=== PATIENT | male | born 1945 | race Caucasian/White ===

== ENCOUNTER 2016-11-15 09:08 | Day surgery (SDC) | payer MEDICARE, BC ==
--- NOTE | ~2016-11-15 | OP ---
Record Of Operation [facility] [address] [place]. [address] NAME: SENA LEE : 41 STATUS : REG [facility]#: [id number] AGE: 71 ADM/REG DATE : 11/15/16 MR#: [id number] REPORT SERV DATE: 11/15/16 DICTATED BY: CARLOS SHABAZZ DATE: 11/15/16 REPORT STATUS : Draft TRANSCRIBED BY: KAYCEE DATE: 11/15/16 DATE OF PROCEDURE: 11/15/2016 PREPROCEDURE DIAGNOSIS: Thickening of sigmoid colon on CT. POSTPROCEDURE DIAGNOSIS: Rectal cancer. HISTORY OF PRESENT ILLNESS: Mr. Lee is a 71-year-old gentleman who has never had a colonoscopy. He was being evaluated for fecal incontinence and issues with urination. He did have some bright red blood on the toilet paper. He underwent a CT scan of the pelvis without contrast which showed some thickening of the sigmoid colon. PROCEDURE: Colonoscopy, hot biopsy, polypectomy. DESCRIPTION OF PROCEDURE: The patient was taken to the endoscopy suite, positioned in the left lateral decubitus position. Informed consent was obtained followed by IV sedation, delivered by SOCKET PULLER. Digital rectal exam, decreased sphincter tone, no masses. The scope was navigated to simply 5 cm when a large almost completely circumferential mass was noted from [address] to 15 cm. It was friable. Multiple hot biopsies were taken. This was indeed a mass or tumor. The scope was navigated past it all the way to the ileocecal valve where the appendiceal orifice. Cecal straps were noted and prep was moderately adequate. The scope was withdrawn over a 12-minute period of time. He did have significant diverticular disease proximal to the lesion but again the lesion measured between 15 cm and 5 cm. There was adequate margin between the distal aspect of the tumor and the anorectal verge based on digital rectal exam where the tumor is barely palpable at the tip of the finger. The scope was withdrawn. He tolerated the procedure well. SAGAR/KAYCEE Carlos Shabazz M.D. / [id number] CC: Matty Dee M.D. J. Patrick Dilworth, M.D.
[~2016-11-15 09:08] MED LIST: ASAB PO; BEN25 PO; CENTRUM TAB1 TAB PO; CIP5 PO; FLOMAX4 PO; HYZAAR1 TAB PO; LOFIBRA160 MG PO; PCET PO; PYR200 PO; TRADJENTA5 MG PO; TRAZ50 PO; Z300 PO; ZOCOR40 PO
[2016-11-30] MEDS ORDERED: JANUVIA25 MG PO (13:18)
[2016-11-30] MEDS ORDERED: COMP10B PO (13:18)
[2016-11-30] MEDS ORDERED: ZOFRAN8 PO (13:18)
[2017-03-07] MEDS ORDERED: JANUVIA50 PO (10:30)
[2017-05-23] MEDS ORDERED: TYLENOL PM PO (20:55)
[2017-05-23] MEDS ORDERED: PRILO PO (20:57)
[2017-05-23] MEDS ORDERED: IMOD PO (20:57)
[2017-05-23] MEDS ORDERED: MEGACEUDL PO (20:57)
[2017-05-23] MEDS ORDERED: FLOMAX4 PO (20:58)
[2017-05-23] MEDS ORDERED: JANUVIA50 PO (20:58)
[2017-05-23] MEDS ORDERED: SB325 PO (20:58)
[2017-05-23] MEDS ORDERED: ZOL50 PO (21:03)
[2017-05-23] MEDS ORDERED: PROAIR HFA INH (21:03)
[2017-05-23] MEDS ORDERED: LOFIB160 PO (21:03)
[2017-05-23] MEDS ORDERED: CHEMOTHERAPY (21:05)
[2017-05-25] MEDS ORDERED: ELIQUIS 5 MG TAB5 MG PO (10:38)
[2017-05-25] MEDS ORDERED: REM15 PO (10:42)
== END 2016-11-15 23:59 | disposition home or self-care (01) ==
LOC: DMU 09:08
PROVIDERS: Surgery
PROC: 0DBP8ZX Excision of Rectum, Via Natural or Artificial Opening Endoscopic, Diagnostic (ICD-10-PCS; principal; 2016-11-15 11:00)
DX: C20 Malignant neoplasm of rectum (principal); I10 Essential (primary) hypertension; E78.00 Pure hypercholesterolemia, unspecified; E07.89 Other specified disorders of thyroid; E11.9 Type 2 diabetes mellitus without complications; N28.9 Disorder of kidney and ureter, unspecified; G47.33 Obstructive sleep apnea (adult) (pediatric); Z79.82 Long term (current) use of aspirin; Z79.899 Other long term (current) drug therapy; Z79.891 Long term (current) use of opiate analgesic
CPT/HCPCS: 82962; 88305

== ENCOUNTER 2016-12-06 11:38 | Day surgery (SDC) | payer MEDICARE, BC ==
[2016-12-04 12:39] LABS: HEMATOCRIT 38.5 % (40.0-51.0); HEMOGLOBIN 11.9 g/dL (13.6-17.8)
[2016-12-04 13:14] LABS: BUN (BLOOD UREA NITROGEN) 18 MG/DL (6-23); CALCIUM, SERUM 9.9 MG/DL (8.5-10.4); CHLORIDE, SERUM 105 MMOL/L (96-112); CO2 (CARBON DIOXIDE) 29 MMOL/L (24-34); CREATININE 1.82 MG/DL (0.70-1.30); GFR AFRICAN AMERICAN 42 ML/MIN (>=60); GFR NON AFRICAN AMERICAN 36 ML/MIN (>=60); GLUCOSE, SERUM 146 MG/DL (60-99); POTASSIUM, SERUM 4.4 MMOL/L (3.5-5.3); SODIUM, SERUM 141 MMOL/L (135-148)
--- NOTE | ~2016-12-06 | OP ---
Record Of Operation [facility] [address] [place]. 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 PROCEDURE: Port placement of the right internal jugular vein with fluoroscopic and ultrasound guidance. ASSOCIATE SOFTWARE DEVELOPER: Mariana. DESCRIPTION OF PROCEDURE: The patient was taken to the operating room, induced under MAC anesthetic, prepped and draped in the usual sterile fashion. Local anesthetic was injected just above the clavicle just to the right of the sternal notch. Then ultrasound was used to identify the right internal jugular vein which was anterior, lateral, larger, and compressible to the pulsatile carotid. A picture was taken with the ultrasound placed on the chart for confirmation. Using ultrasound guidance, a finer needle was used to access the internal jugular vein and then via Seldinger technique, a wire was placed through the vein and confirmed in the SVC using fluoro. The needle was removed and the wire pinned to the drapes using a rubber shod. Local anesthetic was used two finger breaths below the clavicle injecting subcu in the skin and adipose tissue. A 2 cm incision was made with a scalpel blade. This was carried down to the level of fascia using cautery. A 2 x 2 cm pocket was created using cautery and two stay sutures of 2-0 Prolene were placed on the pectoralis fascia through the port and tagged holding it into place. Then local anesthetic was placed in the subcu tissue from the port pocket site to the neck incision. A stab incision was made with the scalpel overlying the wire and then the tunneler attached to tubing was brought from the port pocket site out laterally the neck incision. Here, the tunneler was cut from the tubing on a diagonal and the obturator plus sheath was placed over the wire without any resistance. Fluoro confirmed its presence in the SVC. The wire and obturator were removed. The tubing placed down the sheath to 20 cm, it aspirated and flushed easily. The sheath was cracked and removed holding the tubing in place. Fluoro confirmed the tip in the SVC at the level of the right atrium. The tubing was clamped with a rubber shod, cut to size and dilated, attached to the port, and locked into place. The port was aspirated and flushed easily and then it was placed into the port pocket. The two stay sutures were tied, cut. The two incisions were closed with 3-0 Vicryl suture and a 4-0 Monocryl for the skin. He was cleaned and dried followed by benzoin, Steri-Strips, Telfa, and Tegaderm, tolerated the procedure well and chest x-ray confirmed placement with absence of pneumothorax in the PACU. It is my pleasure participating in the care of your patient. SAGAR/KAYCEE Carlos Shabazz M.D. Record Of Operation [address] [address] NAME: SENA LEE : 41 STATUS : [facility] PAT#: [id number] AGE: 71 ADM/REG DATE : 12/06/16 MR#: [id number] REPORT SERV DATE: 12/06/16 DICTATED BY: CARLOS SHABAZZ DATE: 12/06/16 REPORT STATUS : Draft TRANSCRIBED BY: KAYCEE DATE: 12/06/16 / [id number] CC: Matty Dee M.D. Derek W Holland, M.D.
[~2016-12-06 11:38] MED LIST changes: +COMP10B PO; +JANUVIA25 MG PO; +ZOFRAN8 PO
[2017-03-07] MEDS ORDERED: JANUVIA50 PO (10:30)
[2017-05-23] MEDS ORDERED: TYLENOL PM PO (20:55)
[2017-05-23] MEDS ORDERED: PRILO PO (20:57)
[2017-05-23] MEDS ORDERED: MEGACEUDL PO (20:57)
[2017-05-23] MEDS ORDERED: IMOD PO (20:57)
[2017-05-23] MEDS ORDERED: JANUVIA50 PO (20:58)
[2017-05-23] MEDS ORDERED: SB325 PO (20:58)
[2017-05-23] MEDS ORDERED: FLOMAX4 PO (20:58)
[2017-05-23] MEDS ORDERED: PROAIR HFA INH (21:03)
[2017-05-23] MEDS ORDERED: ZOL50 PO (21:03)
[2017-05-23] MEDS ORDERED: LOFIB160 PO (21:03)
[2017-05-23] MEDS ORDERED: CHEMOTHERAPY (21:05)
[2017-05-25] MEDS ORDERED: ELIQUIS 5 MG TAB5 MG PO (10:38)
[2017-05-25] MEDS ORDERED: REM15 PO (10:42)
== END 2016-12-06 15:19 | disposition home or self-care (01) ==
LOC: SDC 11:38
PROVIDERS: Surgery
PROC: 05HM33Z Insertion of Infusion Device into Right Internal Jugular Vein, Percutaneous Approach (ICD-10-PCS; principal; 2016-12-06 13:30)
DX: C20 Malignant neoplasm of rectum (principal); I10 Essential (primary) hypertension; E78.00 Pure hypercholesterolemia, unspecified; E11.9 Type 2 diabetes mellitus without complications; N18.9 Chronic kidney disease, unspecified
CPT/HCPCS: 71010; 77001; 80048; 82962; 85014; 85018; 93005; C1788; J0690; J2250; J2405; J2710; J3010

== ENCOUNTER 2017-03-12 11:05 | Inpatient (IN) | payer MEDICARE, BC ==
[2017-03-06 15:48] LABS: HEMATOCRIT 37.9 % (40.0-51.0); HEMOGLOBIN 12.3 g/dL (13.6-17.8)
[2017-03-06 16:04] LABS: BUN (BLOOD UREA NITROGEN) 15 MG/DL (6-23); CALCIUM, SERUM 9.7 MG/DL (8.5-10.4); CHLORIDE, SERUM 106 MMOL/L (96-112); CO2 (CARBON DIOXIDE) 27 MMOL/L (24-34); CREATININE 1.64 MG/DL (0.70-1.30); GFR AFRICAN AMERICAN 47 ML/MIN (>=60); GFR NON AFRICAN AMERICAN 41 ML/MIN (>=60); GLUCOSE, SERUM 94 MG/DL (60-99); POTASSIUM, SERUM 4.6 MMOL/L (3.5-5.3); SODIUM, SERUM 140 MMOL/L (135-148)
--- NOTE | ~2017-03-12 | DS ---
Discharge Summary [facility] [address] [place]. [address] NAME: SENA LEE : 41 STATUS : DIS IN PAT#: [id number] AGE: 71 ADM/REG DATE : 03/12/17 MR#: [id number] REPORT SERV DATE: 03/27/17 DICTATED BY: CARLOS SHABAZZ DATE: 03/26/17 REPORT STATUS : Draft TRANSCRIBED BY: MODChandra DATE: 03/26/17 Data Collection from hospitalization DISCHARGE DIAGNOSES: 1. Rectal cancer. 2. Hypertension. 3. Diabetes. 4. Fecal incontinence. 5. Insomnia. 6. Urinary retention. 7. Urinary incontinence. 8. Kidney stones. CONSULTATIONS: None. PROCEDURES PERFORMED: Robotic converted to laparoscopic converted to open low anterior resection with ileostomy, applying a modifier 22 due to the degree of difficulty and the need to convert from robotic to open procedure due to the need for deep pelvic instruments, 03/12/2017. PATHOLOGY: Rectosigmoid colon, low anterior resection-invasive mucinous adenocarcinoma, colon "donut" reanastomosis-diverticulosis. No tumor seen. MEDICATIONS: Lofibra 160 mg at bedtime, [place] 7.5/325 one to two tablets every four to six hours as needed, Zocor 40 mg at bedtime, Januvia 50 mg every day at bedtime, Flomax 0.4 mg at bedtime, Desyrel 50 mg at bedtime as needed. CONDITION AT DISCHARGE: Stable. DISPOSITION: The patient was discharged home to be followed by home health care on a 2000- calorie diabetic diet with activities as instructed. He would follow up with me as instructed. HOSPITAL COURSE: This is a 71-year-old man, who has T3 N0 M0 adenocarcinoma of the rectum. He is status post neoadjuvant therapy. Treatment options were discussed and it was elected to proceed with surgical intervention. He was admitted to the hospital at this time for further evaluation and treatment. Upon admission, he was taken to the operating room, where he underwent the above-mentioned procedure. He tolerated this well and there were no complications. On postop day one, he complained of pain. He was using the DETECTIVE CAPTAIN. He would need assistance for ambulation. The Gee catheter remained in place. He was evaluated by Physical Therapy. On postop day two, he was tolerating a regular diet. His incisions looked okay. Creatinine level was 1.7. Discharge planning was performed. On 03/15/2017, he did have some urinary retention when the Gee catheter was removed. Creatinine level was now 1.36. He had had a fever of 101.1 during the night. Chest x-ray and urinalysis were going to be checked. Blood culture was going to be performed. Discharge instructions were given. Due to his improved and stable condition, he was discharged home with the above-stated instructions. Discharge Summary [address] [place]. [address] NAME: SENA LEE : 41 STATUS : DIS IN PAT#: [id number] AGE: 71 ADM/REG DATE : 03/12/17 MR#: [id number] REPORT SERV DATE: 03/27/17 DICTATED BY: CARLOS SHABAZZ DATE: 03/26/17 REPORT STATUS : Draft TRANSCRIBED BY: KAYCEE DATE: 03/26/17 Information collected by: Madison Mejia I submit the above information as my discharge summary. CHRIS/KAYCEE Carlos Shabazz M.D. / [id number] CC: Matty Dee M.D.
--- NOTE | ~2017-03-12 | HP ---
History And Physical [address] [address] NAME: SENA LEE : 41 STATUS : ADM IN [facility]#: [id number] AGE: 71 ADM/REG DATE : 03/12/17 MR#: [id number] REPORT SERV DATE: 03/13/17 DICTATED BY: CARLOS SHABAZZ DATE: 03/12/17 REPORT STATUS : Draft TRANSCRIBED BY: KAYCEE DATE: 03/12/17 DATE OF ADMISSION: 03/12/2017 REASON FOR ADMISSION: Robotic converted to open low anterior resection for T3, N0, M0 adenocarcinoma of the rectum status post neoadjuvant therapy. PAST MEDICAL HISTORY: Fecal incontinence, rectal cancer, insomnia, urinary retention, urinary incontinence, kidney stones, diabetes, and high blood pressure. PAST SURGICAL HISTORY: Parathyroidectomy, skin cancer excision, cataract surgery, lithotripsy, vasectomy, and Port-A-Cath. SOCIAL HISTORY: He does not smoke or drink. He is . FAMILY HISTORY: Positive for breast cancer, diabetes, hypertension, and NV. ALLERGIES: NONE. MEDICATIONS: Januvia, fenofibrate, simvastatin, Flomax. REVIEW OF SYSTEMS: As stated in HPI, otherwise, negative. PHYSICAL EXAMINATION: VITAL SIGNS: 84, 133/74, BMI of 26. GENERAL: Alert, elderly white male, in no acute distress. HEENT: Normocephalic, atraumatic. EOMI. PERRLA. Oropharynx is clear. NECK: Supple. No lymphadenopathy. Clear to auscultation bilaterally. HEART: Regular rate and rhythm. ABDOMEN: No incisions, soft and flat. Digital rectal exam: You can palpate the tumor at 6 cm to the right. EXTREMITIES: Moves all extremities well. NEURO: Cranial nerves 2 through 12 intact. SKIN: No rashes. ASSESSMENT AND PLAN: A 71-year-old male with a T3, N0, M0 adenocarcinoma of the rectum, status post neoadjuvant therapy planning for low anterior resection with ileostomy for cure. It is my pleasure participating in the care of your patient. SAGAR/KAYCEE Carlos Shabazz M.D. History And Physical [address] [place]. [address] NAME: SENA LEE : 41 STATUS : ADM IN PAT#: [id number] AGE: 71 ADM/REG DATE : 03/12/17 MR#: [id number] REPORT SERV DATE: 03/13/17 DICTATED BY: CARLOS SHABAZZ DATE: 03/12/17 REPORT STATUS : Draft TRANSCRIBED BY: DYLANL DATE: 03/12/17 / [id number] CC: Matty Dee M.D.
--- NOTE | ~2017-03-12 | OP ---
Record Of Operation [facility] [address] [place]. [address] NAME: SENA LEE : 41 STATUS : ADM IN PAT#: [id number] AGE: 71 ADM/REG DATE : 03/12/17 MR#: [id number] REPORT SERV DATE: 03/13/17 DICTATED BY: CARLOS SHABAZZ DATE: 03/12/17 REPORT STATUS : Draft TRANSCRIBED BY: MODL DATE: 03/12/17 DATE OF PROCEDURE: 03/12/2017 PROCEDURES: Robotic converted to laparoscopic, converted to open low anterior resection with ileostomy applying a modifier 22 due to degree of difficulty and the need to convert from robotic to open procedure due to the need for deep pelvic instruments. PERSONNEL WORKER: Kendell Munoz. DESCRIPTION OF PROCEDURE: The patient was taken to the operating room, induced under general anesthesia, and placed into lithotomy. Proctoscopy with distal rectal washout was performed. The ulcer where the tumor used to be was present at 6 cm on the right side, just above the anorectal ring. Rectal washout was performed with a liter of saline and 120 mL of Betadine paint using a Mallinckrodt catheter. Then, a Gee catheter was placed and the patient was prepped and draped in the sterile fashion. To begin with, a 4 cm incision was made in the right lower quadrant. This was carried down to the level of the fascia and a 2.5 cm wound protector was placed. The anvil with a Prolene suture and a Ray-Snehal was placed in through the opening and then an 8 and a 12 mm trocar was placed in through the opening and a [place] was used to tighten it, this was used to insufflate the abdomen. The camera was brought through this port. The rest of the trocar sites were placed along the periumbilical line 10 cm apart, one for camera port, two for arms two and one, and then a 5 mm trocar was placed between arms three and four. Once this was accomplished, the patient had an extremely redundant sigmoid colon and adhesions of the small bowel to the pelvis, these were taken down using cautery scissors, then the small bowel was placed into the epigastrium. The Ray-Snehal was unrolled to hold the small bowel in the right gutter. The anvil was placed in the pelvis and dissection was begun and the entire left colon was mobilized including the sigmoid colon, the attachments of the sigmoid colon to itself and the adhesions to the abdominal wall. Once this was accomplished, then the mesentery was opened from the sacral promontory to the base of the mesentery as this was done and dissection was carried laterally. The ureter was identified and protected, then a window was made in the mesentery on the other side of the FRANCESCA and Harmonic Scalpel was used to transect the blood vessels. A window was made in the mesentery proximal to the FRANCESCA, which would be the proximal transection point and intervening mesentery was taken with Harmonic scalpel. At this point, attention was turned to the pelvis. Total mesorectal excision was performed to the level of the levators. However, at the level of Waldeyer's fascia, the pelvis curved up and the robotic camera could not curve or look up underneath the prostate. Dissection was performed circumferentially, but when the instruments no longer reached, the decision was made to convert to a lap hand-assist technique putting a 6 cm wound protector with GelPort in the midline using the other trocars to continue. However, we had the same problem using a 30-degree laparoscope where we could not look under the prostate in order to get a stapler in place and the laparoscopic instruments that were straight could not make this curve. For this reason, the decision was made to open and extra long set of retractors was used, Bookwalter retractor was placed, and the extra long lighted [place]'s retractor was used. The rest of the dissection was performed down to the level of the levators and the anal canal. It required four green loads of the [place] [facility] GLAD[facility] to transect the rectum. The proximal end was divided between two Kochers and Dr. Sam did open the Record Of Operation [address] [address] NAME: SENA LEE : 41 STATUS : ADM IN [facility]#: [id number] AGE: 71 ADM/REG DATE : 03/12/17 MR#: [id number] REPORT SERV DATE: 03/13/17 DICTATED BY: CARLOS SHABAZZ DATE: 03/12/17 REPORT STATUS : Draft TRANSCRIBED BY: MODL DATE: 03/12/17 specimen to confirm she had a 2-mm margin from the distal aspect of the scar to the staple line. At this point, she put new gloves on, a pursestring suture was placed, and placed the anvil in the distal end of the descending colon. It was tied taut around the shaft of the stapler leaving a 2 mm cuff and then the undersurface was cleaned of all fat and blood vessels using cautery. This was returned to the abdomen. All dirty instruments were taken down to the procto table. Kendell Munoz went below, dilated the anus 1, 2, then 3 fingers bringing the 29 EEA anvil to the level of the staple line and bringing the spike out to the left of the staple line. Dr. Sam changed her gloves. She the anvil to the spike under direct guidance closing the stapler until the marker was [facility] in the green window and held for 15 seconds, all the way through the green window and held for 15 seconds and fired and held for 15 seconds. At this point, the stapler was opened two turns, brought out through the anus. There were two complete donuts, these were passed off the table and sent to pathology as anastomotic rings. The pelvis was filled with fluid. Kendell used the proctoscope to insufflate as Dr. Sam clamped the bowel, this was a negative leak test. All irrigation was removed. The ileostomy site was created through the prior camera incision by extending it and making a circular incision on the skin, 2 cm incision in the anterior fascia spreading the muscle fibers of the rectus and extending the posterior fascia incision a total of 2 cm. A Alber was used, external to internal, grasping the Renee which was placed through the mesentery of the small bowel 14 cm proximal to the ileocecal valve. This was brought up through the incision and hemostat was used to tag to the dermis holding it in place. The anterior fascia of the 4 mm incision was closed with Prolene suture. The midline incision was closed with looped PDS proximal to middle, distal to middle, tying in the center, irrigating all wounds, closing all wounds with yesenia, followed by Band-Aids and airstrip green towels were placed over the abdomen and then the ileostomy was matured with a curvilinear incision on the antimesenteric side placing four Lisa stitches in four quadrants of 3-0 Vicryl suture and then interrupted in between each. The wafer was cut to size, followed by the appliance. The patient tolerated the procedure well. SAGAR/KAYCEE Carlos Shabazz M.D. / [id number] CC: Carlos Shabazz M.D.
[~2017-03-12 11:05] MED LIST changes: +JANUVIA50 PO
[2017-03-12 20:47] LABS: HEMATOCRIT 33.1 % (40.0-51.0)
[2017-03-13 07:11] LABS: BASOPHILS 0.2 %; BASOPHILS ABSOLUTE 0.01 10/3/uL (0.0-0.16); EOSINOPHILS 0 %; HEMATOCRIT 33.4 % (40.0-51.0); HEMOGLOBIN 11.4 g/dL (13.6-17.8); IMMATURE GRANULOCYTES 0.3 %; IMMATURE GRANULOCYTES ABSOLUTE 0.02 10/3/uL (0.0-0.11); LYMPHOCYTES 5.4 %; LYMPHOCYTES ABSOLUTE 0.35 10/3/uL (0.67-4.30); MANUAL DIFF NO %; MEAN CORPUS HGB CONC 34.1 g/dL (32.0-36.0); MEAN CORPUSCULAR HEMOGLOB 31.2 pg (26.0-34.0); MEAN CORPUSCULAR VOLUME 91.5 fL (80-100); MEAN PLATELET VOLUME 9.1 fL (9.2-13.0); MONOCYTES 8.8 %; MONOCYTES ABSOLUTE 0.57 10/3/uL (0.21-1.20); NEUTROPHILS 85.3 %; PLATELET COUNT 164 10/3/uL (150-400); RBC DISTRIBUTION WIDTH 14.7 % (12.0-16.0); RED CELL COUNT 3.65 10/6/uL (4.7-6.1); WHITE BLOOD CELLS 6.5 10/3/uL (4.5-10.5)
[2017-03-13 07:27] LABS: ALBUMIN 3.3 G/DL (3.5-5.0); ALKALINE PHOSPHATASE 54 U/L (45-117); BUN (BLOOD UREA NITROGEN) 17 MG/DL (6-23); CALCIUM, SERUM 8.2 MG/DL (8.5-10.4); CHLORIDE, SERUM 106 MMOL/L (96-112); CO2 (CARBON DIOXIDE) 24 MMOL/L (24-34); GFR AFRICAN AMERICAN 45 ML/MIN (>=60); GFR NON AFRICAN AMERICAN 39 ML/MIN (>=60); GLOBULIN 3.2 G/DL (2.5-4.1); GLUCOSE, SERUM 123 MG/DL (60-99); POTASSIUM, SERUM 4.7 MMOL/L (3.5-5.3); SGOT(AST) 26 U/L (5-40); SGPT(ALT) 23 U/L (5-65); SODIUM, SERUM 137 MMOL/L (135-148); TOTAL BILIRUBIN 0.5 MG/DL (0-1.2); TOTAL PROTEIN 6.5 G/DL (6.0-8.5)
[2017-03-14 07:08] LABS: BUN (BLOOD UREA NITROGEN) 15 MG/DL (6-23); CALCIUM, SERUM 8.4 MG/DL (8.5-10.4); CHLORIDE, SERUM 105 MMOL/L (96-112); CO2 (CARBON DIOXIDE) 28 MMOL/L (24-34); GFR AFRICAN AMERICAN 49 ML/MIN (>=60); GFR NON AFRICAN AMERICAN 42 ML/MIN (>=60); GLUCOSE, SERUM 132 MG/DL (60-99); POTASSIUM, SERUM 4.1 MMOL/L (3.5-5.3); SODIUM, SERUM 136 MMOL/L (135-148)
[2017-03-15 06:23] LABS: CALCIUM, SERUM 8.4 MG/DL (8.5-10.4); CHLORIDE, SERUM 105 MMOL/L (96-112); CO2 (CARBON DIOXIDE) 28 MMOL/L (24-34); CREATININE 1.36 MG/DL (0.70-1.30); GFR AFRICAN AMERICAN 59 ML/MIN (>=60); GFR NON AFRICAN AMERICAN 51 ML/MIN (>=60); GLUCOSE, SERUM 128 MG/DL (60-99); POTASSIUM, SERUM 3.9 MMOL/L (3.5-5.3); SODIUM, SERUM 139 MMOL/L (135-148)
[2017-03-15 06:24] LABS: BUN (BLOOD UREA NITROGEN) 11 MG/DL (6-23)
[2017-03-15 09:12] LABS: ASCORBIC ACID (UR NOT ORDER) NEG (NEG); BILIRUBIN, URINE NEGATIVE (NEG); KETONE, URINE NEGATIVE (NEG); LEUKOCYTE ESTERASE(NOT OR NEG (NEG); WBC (NOT ORDERED) (RFLEX) < 1 (0-5)
[2017-03-15] MEDS ORDERED: NORCO1 TA2 PO (15:18)
[2017-05-23] MEDS ORDERED: TYLENOL PM PO (20:55)
[2017-05-23] MEDS ORDERED: PRILO PO (20:57)
[2017-05-23] MEDS ORDERED: MEGACEUDL PO (20:57)
[2017-05-23] MEDS ORDERED: IMOD PO (20:57)
[2017-05-23] MEDS ORDERED: JANUVIA50 PO (20:58)
[2017-05-23] MEDS ORDERED: SB325 PO (20:58)
[2017-05-23] MEDS ORDERED: FLOMAX4 PO (20:58)
[2017-05-23] MEDS ORDERED: LOFIB160 PO (21:03)
[2017-05-23] MEDS ORDERED: ZOL50 PO (21:03)
[2017-05-23] MEDS ORDERED: PROAIR HFA INH (21:03)
[2017-05-23] MEDS ORDERED: CHEMOTHERAPY (21:05)
[2017-05-25] MEDS ORDERED: ELIQUIS 5 MG TAB5 MG PO (10:38)
[2017-05-25] MEDS ORDERED: REM15 PO (10:42)
== END 2017-03-15 16:30 | disposition home health service (06) | DRG 330 ==
LOC: SDC/OF 11:05 → 5SO 21:43
PROVIDERS: Surgery
PROC: 0DTP0ZZ Resection of Rectum, Open Approach (ICD-10-PCS; principal; 2017-03-12 12:30)
PROC: 0D1B0Z4 Bypass Ileum to Cutaneous, Open Approach (ICD-10-PCS; 2017-03-12 12:30)
DX: C20 Malignant neoplasm of rectum (principal); C77.2 Secondary and unspecified malignant neoplasm of intra-abdominal lymph nodes; E11.22 Type 2 diabetes mellitus with diabetic chronic kidney disease; Q43.8 Other specified congenital malformations of intestine; I12.9 Hypertensive chronic kidney disease with stage 1 through stage 4 chronic kidney disease, or unspecified chronic kidney disease; N18.9 Chronic kidney disease, unspecified; R33.8 Other retention of urine; Z79.899 Other long term (current) drug therapy; Z80.3 Family history of malignant neoplasm of breast; Z83.3 Family history of diabetes mellitus; Z82.49 Family history of ischemic heart disease and other diseases of the circulatory system; Z98.890 Other specified postprocedural states; Z87.442 Personal history of urinary calculi; Z79.84 Long term (current) use of oral hypoglycemic drugs; Z53.31 Laparoscopic surgical procedure converted to open procedure
CPT/HCPCS: 36415; 71020; 80048; 80053; 81001; 82150; 82962; 85014; 85018; 85025; 86850; 86900; 86901; 88309; 88341; 88342; 93005; 97116-GP; 97162-GP; A9270-GY; C1729; G8978-CK-GP; G8979-CJ-GP; J0690; J2250; J2270; J2370; J2405; J2710; J2795; J3010; P9045